=== PATIENT | male | born 1970 | race Two or more races ===

== ENCOUNTER 2019-09-07 11:24 | Emergency (ER) | payer OTHER ==
[~2019-09-07] VITALS: Ht 180.3 cm; Wt 78.1 kg
[2019-09-07] MEDS ORDERED: HYDROmorphone 1 MG/ML, 1ML INJ ONE ×2 (11:48→12:40)
[2019-09-07] MEDS ORDERED: ONDANSETRON 2MG/ML, 2ML ONE (11:48)
[2019-09-07] MEDS: HYDROmorphone 2 MG/ML, 1ML IVPush PRN ×2 (11:50→12:44)
--- NOTE | 2019-09-07 11:54 | NUR ---
PIV PLACED, LABS DRAWN AND COLLECTED BY JOINTER SUBMARINE CABLE. MEDS ADMIN PER APR. PT PLACED ON OXYGEN FOR SAFETY. PT CONNECTED TO MONITORING. SPOUSE AT BEDSIDE. PT ALREADY APPEARING MORE RELAXED AND IN LESS PAIN.
[2019-09-07] MEDS ORDERED: SODIUM CHLORIDE FLUSH 10ML SYR IVF ONE (12:00)
[2019-09-07] MEDS ORDERED: ONDANSETRON 2MG/ML, 2ML IVPush ONE (12:00)
[2019-09-07 12:09] LABS: BASOPHILS # (AUTO) 0.04 x10^3/uL (0-0.1); BASOPHILS % (AUTO) 0 % (0-1); EOSINOPHILS # (AUTO) 0.01 x10^3/uL (0-0.4); EOSINOPHILS % (AUTO) 0 % (1-7); LYMPHOCYTES # (AUTO) 0.69 x10^3/uL (1-3.4); LYMPHOCYTES % (AUTO) 6 % (22-44); MD NO; MEAN CORPUSCULAR HEMOGLOBIN 28.7 pg (27.5-34.5); MEAN CORPUSCULAR VOLUME 89.8 fL (81-97); MEAN PLATELET VOLUME 9.9 fL (7.4-10.4); MONOCYTES # (AUTO) 0.39 x10^3/uL (0.2-0.8); MONOCYTES % (AUTO) 3 % (2-9); NEUTROPHILS % (AUTO) 91 % (42-75); PLATELET COUNT 263 x10^3/uL (130-400); RED BLOOD COUNT 5.66 x10^6/uL (4.38-5.82)
[2019-09-07 12:20] LABS: ALBUMIN 4.9 g/dL (3.4-5.0); ANION GAP 14 mmol/L (5-15); CALCIUM 10.6 mg/dL (8.5-10.1); CHLORIDE 109 mmol/L (98-107)
[2019-09-07 12:24] LABS: ALANINE AMINOTRANSFERASE 21 U/L (12-78); ALKALINE PHOSPHATASE 84 U/L (45-117); BILIRUBIN,TOTAL 0.9 mg/dL (0.2-1.0); CREATININE 1.31 mg/dL (0.7-1.3); TOTAL PROTEIN 8.2 g/dL (6.4-8.2)
[2019-09-07 12:25] LABS: MICROSCOPIC INDICATED
--- NOTE | 2019-09-07 12:44 | NUR ---
PT C/O PAIN RETURNING. PRN PAIN UTILITY MANAGER PER APR.
--- NOTE | 2019-09-07 13:01 | NUR ---
RECEIVED NEW ORDERS FOR CT.
--- NOTE | 2019-09-07 13:07 | NUR ---
PT GOING TO CT.
[2019-09-07] MEDS ORDERED: OMNIPAQUE 350 MG/ML, 100ML BOTTLE ONE (13:26)
--- NOTE | 2019-09-07 13:31 | NUR ---
ALL RESULTS ARE BACK AT THIS TIME. CHART UP FOR RECHECK.
[2019-09-07] MEDS ORDERED: KETOROLAC 30 MG/1 ML IVPush ONE (14:00)
[2019-09-07] MEDS ORDERED: KETOROLAC 30 MG/1 ML ONE (14:09)
--- NOTE | 2019-09-07 14:20 | NUR ---
MEDS ADMIN, STRAINER GIVEN TO PT AND EXPLAINED USE. CHART UP FOR RECHECK.
--- NOTE | 2019-09-07 14:33 | NUR ---
PROVIDER AT BEDSIDE TO UPDATE PT ON POC.
[2019-09-07 15:02] VITALS: BP 125/80
== END 2019-09-07 15:05 | disposition home or self-care (01) ==
LOC: ED 11:53
DX: N13.2 Hydronephrosis with renal and ureteral calculous obstruction (principal); R11.2 Nausea with vomiting, unspecified; I10 Essential (primary) hypertension; Z90.49 Acquired absence of other specified parts of digestive tract
CPT/HCPCS: 36415; 74177; 80053; 81001; 83690; 85025; 87086; 96374; 96375; 96376; 99285; J1170; J1885; J2405; Q9967